=== PATIENT | male | born 1970 | race Caucasian/White ===

== ENCOUNTER 2016-07-15 20:42 | Emergency (ER) | payer BC ==
[2016-07-15 20:44] VITALS: BMI 33.6
[2016-07-15 21:17] VITALS: BP 137/86; PULSE 80; TEMP 99.1
--- NOTE | 2016-07-15 21:28 | EDPRACDOC ---
- General Information Chief Complaint: Ankle Pain Stated Complaint: (POS) FLU FEVER SORENESS TO LT ANKLE,REDNESS Time Seen by Provider: 07/15/16 21:19 Information Source: Patient Mode of Arrival: Car Home Medications: Home Medications Apixaban [Eliquis] 5 mg PO BID #60 tablet 08/30/15 Aspirin 325 mg PO .SEE COMMENTS 08/30/15 Aspirin (Enteric Coated) [Ecotrin] 81 mg PO .SEE COMMENTS 08/30/15 Lisinopril [Zestril] 20 mg PO DAILY 08/30/15 [place]-3 Fatty Acids/Fish Oil [Fish Oil 1,000 mg Capsule] 1 cap PO DAILY Omeprazole 20 mg PO DAILY 08/30/15 Propranolol HCl 80 mg PO DAILY 08/30/15 Cephalexin Monohydrate [Keflex] 500 mg PO Q6H #28 cap 07/15/16 Allergies/Adverse Reactions: Allergies Allergy/AdvReac Type Severity Reaction Status Date / Time No Known Allergies Allergy Verified 08/30/15 13:23 - History of Present Illness 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 Ankle Problem Location: Reports: Right, Medial Mechanism: Reports: None Circumstances: Reports: Spontaneous Able to Bear Weight: Fully Pain Severity: Reports: Mild Associated Signs & Symptoms: Reports: Swelling. 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) - Social Medical History Smoking Status: Never smoker EDM Review of Systems - Review of Systems Constitutional: negative: Chills, Fever Respiratory: negative: Cough, Shortness of Breath Cardiovascular: negative: Chest Pain Musculoskeletal: Ankle Integumentary: Rash - Physical Exam Constitutional: Alert (Awake), No apparent distress Oriented to: Time, Person, Place Last recorded Vital Signs: Last Vital Signs Temp 99.1 F 07/15/16 21:10 Pulse 80 07/15/16 21:10 Resp 20 07/15/16 21:10 BP 137/86 07/15/16 21:10 Pulse Ox 95 07/15/16 21:10 Oxygen Pulse Oxygen Saturation 95 O2 Device Room Air Oxygen Flow Rate Fraction of Inspired Oxygen ( FIO2) - HEENT Head: Normal ( normocephalic) - Integumentary Skin: Warm, Dry, Rash (MEDIAL ASPECT OF ANKLE: DIFFUSE ERYTHEMA, NO INDURATION OR FLUCTUANCE, AREA WARM TO TOUCH) - Neurologic Memory Impaired: Normal Motor Function: Normal (Normal tone, Pulses 2+ No cyanosis or edema, FROM) Cranial Nerve: Normal (CN II-X11 intact sensation, strength 5/5) Cerebellar: Normal Mood Description: Normal Perception: Normal ED Ankle Problem Phys Exam - Musculoskeletal Ankle: Swelling (MILD), Mild Tenderness. negative: Deformity, Limited ROM Achilles Tendon: Normal Knee: Normal Lower Leg: Normal Foot: Normal Distal Function/Circulation: Normal, Capillary Refill. negative: Motor Deficit , Pulse Deficit, Sensory Deficit - Integumentary Skin: Erythema, Other (SEE ABOVE) - Differential Diagnosis Other (CELLULITIS) Decision Time to Discharge: 21:29 - Departure Disposition: Home Condition: Stable Final Diagnosis: Cellulitis of left ankle Instructions: Cellulitis (ED) Education/Counseling Given To: Patient Education/Counseling Given Regarding: Diagnosis, Treatment, Prognosis, Follow Up Referrals: Clemencia Henry MD [Primary Care Provider] - One Week Prescriptions: Cephalexin Monohydrate [Keflex] 500 mg PO Q6H #28 cap Additional Instructions: ELEVATE YOUR LEG MUCH POSSIBLE, APPLY COOL COMPRESSES NEEDED, USE TYLENOL OR MOTRIN NEEDED FOR PAIN OR FEVER, RETURN TO THE ED FOR ANY WORSENING SYMPTOMS OR CONCERNS
== END 2016-07-15 21:35 | disposition home or self-care (01) ==
LOC: EDMC 20:42
DX: L03.116 Cellulitis of left lower limb (principal)
CPT/HCPCS: 99282